=== PATIENT | female | born 1945 | race Hispanic/Latino ===

== ENCOUNTER 2018-07-21 19:20 | Emergency (ER) | payer MEDICARE ==
[2018-07-21 19:23] VITALS: BMI 28.1
[2018-07-21 19:26] VITALS: O2SAT 100
[2018-07-21] MEDS ORDERED: Sodium Chloride 0.9% 1,000 ML IV STA (19:48)
[2018-07-21 20:30] LABS: BASO % 0.1 % (0.0-2.0); EOS % 0.2 % (0.0-4.0); HEMOGLOBIN 14.5 g/dL (12.0-16.0); LYMPH # 0.5 K/uL (1.0-4.3); LYMPH % 6.6 % (20.0-40.0); MEAN CELL VOLUME 89.7 fl (81.0-99.0); MEAN CORPUSCULAR HEMOGLOBIN 30.5 pg (27.0-31.0); MEAN PLATELET VOLUME 8.3 fl (7.2-11.7); MONO # 0.4 K/uL (0.0-0.8); MONO % 5.2 % (0.0-10.0); NEUT % 87.9 % (50.0-75.0); NRBC % 0.1 % (0.0-0.0); PLATELET COUNT 214 K/uL (130-400); RBC 4.75 Mil/uL (3.80-5.20); RED CELL DISTRIBUTION WIDTH 13.5 % (11.5-14.5); WHITE BLOOD COUNT 6.9 K/uL (4.8-10.8)
--- NOTE | 2018-07-21 20:36 | ED PDOC ---
HPI:Nausea, Vomiting, Diarrhea Time Seen by Provider: 07/21/18 19:36 Chief Complaint (Nursing): GI Problem Chief Complaint (Provider): GI Problem History Per: Patient History/Exam Limitations: no limitations Onset/Duration Of Symptoms: Days (today) Current Symptoms Are (Timing): Still Present Quality Of Discomfort: "Pain" Associated Symptoms: Nausea, Vomiting, Diarrhea. denies: Fever Additional Complaint(s): 72 year old female with a history of diverticulitis presents to the ED with nausea, vomiting and diarrhea. Patient states she was diagnosed with a UTI earlier this morning at a [facility]. She reports she was having typical symptoms of a UTI. Patient took Macrobid at around 9 am and around 2:30 she developed n ausea, vomiting, and diarrhea. She reports having approximately 8-10 episodes of each, no blood. She is having minimal abdominal pain, but denies fevers. Patient expresses concern due to her history of C Diff. PMD: Dr. Reeves Past Medical History Reviewed: Historical Data, Nursing Documentation, Vital Signs Vital Signs: Last Vital Signs Temp 97.9 F 07/21/18 19:25 Pulse 86 07/21/18 19:25 Resp 16 07/21/18 19:25 BP 107/52 L 07/21/18 19:25 Pulse Ox 100 07/21/18 19:25 Primary Care Provider: Procedure,Nonphys - Medical History PMH: Diverticulitis Other PMH: C diff - Surgical History Surgical History: Cholecystectomy - Family History Family History: States: Unknown Family Hx - Home Medications Home Medications: Ambulatory Orders Medication Instructions Recorded Cefdinir [Omnicef] 300 mg PO BID 5 Days #10 cap 07/21/18 Ondansetron ODT [Zofran ODT] 4 mg PO Q8 PRN #12 odt 07/21/18 - Allergies Allergies/Adverse Reactions: Allergies Allergy/AdvReac Type Severity Reaction Status Date / Time moxifloxacin [From Avelox] Allergy RASH Verified 07/21/18 19:23 nitrofurantoin Allergy RASH Verified 07/21/18 19:23 [From Macrobid] Sulfa (Sulfonamide Allergy RASH Verified 07/21/18 19:23 Antibiotics) Review of Systems ROS Statement: Except As Marked, All Systems Reviewed And Found Negative Constitutional: Negative for: Fever Gastrointestinal: Positive for: Nausea, Vomiting, Abdominal Pain, Diarrhea Physical Exam - Reviewed Nursing Documentation Reviewed: Yes Vital Signs Reviewed: Yes - Physical Exam Appears: Positive for: Non-toxic, No Acute Distress Head Exam: Positive for: ATRAUMATIC Skin: Positive for: Normal Color, Warm, Dry Eye Exam: Positive for: EOMI, Normal appearance, PERRL Cardiovascular/Chest: Positive for: Regular Rate, Rhythm. Negative for: Murmur Respiratory: Positive for: Normal Breath Sounds. Negative for: Respiratory Dis tress Gastrointestinal/Abdominal: Positive for: Normal Exam, Soft. Negative for: Tenderness, Guarding, Rebound Back: Positive for: Normal Inspection Extremity: Positive for: Normal ROM (upper and lower). Negative for: Pedal Edema, Deformity Neurological/Psych: Positive for: Awake, Alert, Oriented (x3) - Laboratory Results Result Diagrams: 07/21/18 20:23 07/21/18 20:23 - ECG O2 Sat by Pulse Oximetry: 100 (RA) Pulse Ox Interpretation: Normal Medical Decision Making Medical Decision Making: Time: 1947 Impression: Gastroenteritis possibly secondary to medication side effects. Patient well appearing at this time. Do not suspect sepsis, will treat symptomatically. Will check bloodwork including C Diff toxin and reevaluate. Plan: --CMP --CBC --IV fluids --Zofran 4 mg IVP --UA --C Diff toxin 1030PM --Patient feeling better, tolerating PO --Informed of results --Advised patient to stop taking macrobid, will prescribe cefpodoxime --Very well appearing upon discharge Scribe Attestation: Documented by Lorin Taylor, acting as a scribe for Jose Krueger MD. Provider Scribe Attestation: All medical record entries made by the Scribe were at my direction and personally dictated by me. I have reviewed the chart and agree that the record accurately reflects my personal performance of the history, physical exam, medical decision making, and the department course for this patient. I have also personally directed, reviewed, and agree with the discharge instructions and disposition. Disposition - Clinical Impression Clinical Impression: Gastroenteritis, Medication side effect - Patient ED Disposition Is Patient to be Admitted: No - Disposition Referrals: Libby Spencer [Outside] Disposition: Routine/Home Disposition Time: 22:26 Condition: IMPROVED Prescriptions: Cefdinir [Omnicef] 300 mg PO BID 5 Days #10 cap Ondansetron ODT [Zofran ODT] 4 mg PO Q8 PRN #12 odt PRN Reason: Nausea/Vomiting Instructions: Adverse Drug Reactions, Adult (DC), Viral Gastroenteritis Forms: [employer] (Al[place]ian)
[2018-07-21 20:38] LABS: ALB/GLOB RATIO 1.6 (1.0-2.1); ALBUMIN 5.1 g/dL (3.5-5.0); ALT/SGPT 29 U/L (9-52); AST/SGOT 33 U/L (14-36); BLOOD UREA NITROGEN 27 mg/dl (7-17); GFR NON-AFRICAN AMERICAN > 60
[2018-07-21 21:22] LABS: BANDS 9 % (0-2); LYMPHOCYTE 5 % (20-50); MONOCYTE 4 % (0-10); NEUTROPHIL 82 % (42-75); PLATELET ESTIMATE NORMAL (NORMAL); TOTAL CELLS COUNTED 100
[2018-07-21 21:40] LABS: SQUAMOUS EPITHIAL < 1 /hpf (0-5); URINE BILIRUBIN NEGATIVE (NEGATIVE); URINE BLOOD SMALL (NEGATIVE); URINE CLARITY SLIGHTY-CLOUDY (Clear); URINE GLUCOSE (UA) NEG (NEGATIVE); URINE LEUKOCYTE ESTERASE NEG Leu/uL (Negative); URINE PROTEIN NEGATIVE (NEGATIVE); URINE UROBILINOGEN 0.2-1.0 mg/dL (0.2-1.0)
[2018-07-21 21:44] LABS: URINE COLOR GREEN (YELLOW)
[2018-07-21 22:38] VITALS: BP 117/58; PULSE 79; RESP 18; TEMP 98.6
== END 2018-07-21 22:38 | disposition home or self-care (01) ==
LOC: H.ER 19:20
DX: K52.9 Noninfective gastroenteritis and colitis, unspecified (principal); Z88.1 Allergy status to other antibiotic agents
CPT/HCPCS: 80053; 81003; 85025; 96361; 96374; 99284; J2405; J7030